=== PATIENT | male | born 2000 | race American Indian/Alaskan Native ===

== ENCOUNTER → 2022-01-19 13:26 | Outpatient (CLI) | payer OTHER, SELFPAY ==
--- NOTE | 2022-01-19 | DI.RAD.S_ITS ---
PROCEDURE: XR FEMUR LT MIN 2V INDICATIONS: Pain in left knee TECHNIQUE: To views of the femur were acquired. COMPARISON: [facility], CR, XR FEMUR 2+ VIEWS LEFT, 09/26/2017, 16:30. FINDINGS: Bones: Postsurgical changes compatible with ORIF of left femur fractures stable compared to September 26, 2017. Orthopedic hardware is in expected position. Orthopedic hardware is intact. No lucencies identified at the bone-hardware interface. No fractures or dislocations. No suspicious bony lesions. Soft tissues: No suspicious soft tissue calcifications or masses. IMPRESSION: Stable examination compared to September 26, 2017 with expected postsurgical change for left femur ORIF. Dictated by: Katia Ocampo MD, PhD on 01/19/2022 at 15:20 Approved by: Katia Ocampo MD, PhD on 01/19/2022 at 15:22
--- NOTE | 2022-01-19 | DI.RAD.S_ITS ---
PROCEDURE: XR KNEE LT 1TO2V INDICATIONS: Pain in left knee TECHNIQUE: To views of the knee were acquired. COMPARISON: [facility], CR, XR FEMUR 2+ VIEWS LEFT, 09/26/2017, 16:30. FINDINGS: Bones: Status post ORIF of left femur fracture which are stable compared to prior femur series obtained in 2017. Orthopedic hardware is in expected position. No acute fractures or dislocations. No suspicious bony lesions. Mild left knee tricompartmental osteoarthritis. Soft tissues: No joint effusion. No suspicious soft tissue calcifications. IMPRESSION: Mild tricompartmental left knee osteoarthritis. Stable postsurgical changes compatible with ORIF of left femur fracture. Dictated by: Katia Ocampo MD, PhD on 01/19/2022 at 15:24 Approved by: Katia Ocampo MD, PhD on 01/19/2022 at 15:25
== END ==
PROVIDERS: PCP Physician Assistant; Referring Provider Physician Assistant; Visit Provider Physician Assistant
DX: M25.562 Pain in left knee (principal); M17.12 Unilateral primary osteoarthritis, left knee
CPT/HCPCS: 73552; 73560

== ENCOUNTER 2024-05-20 13:38 | Observation (INO) | payer OTHER, SELFPAY ==
[2024-05-20 13:41] VITALS: BP 139/84; PULSE 87; RESP 18; TEMP 37; O2SAT 99; BMI 35.4
[2024-05-20 14:18] LABS: Add Manual Diff / Slide Review NO; Basophils Absolute Auto 100 /uL (0-100); Basophils Percent Auto 0.5 % (0-2); Eosinophils Absolute Auto 200 /uL (0-450); Hematocrit 45.4 % (41-53); Hemoglobin 15.1 g/dL (13.5-17.5); Lymphocytes Absolute Auto 1900 /uL (1100-4500); Lymphocytes Percent Auto 16.8 % (25-40); Mean Corpuscular HGB Conc 33.4 % (30-36); Mean Corpuscular Hemoglobin 27.6 PG (26-34); Mean Corpuscular Volume 82.7 fL (80-100); Monocytes Absolute Auto 700 /uL (0-900); Monocytes Percent Auto 6.2 % (3-14); Neutrophils Absolute Auto 8200 /uL (1500-7000); Neutrophils Percent Auto 74.5 % (50-75); Platelet Count 276 X10^3/uL (150-400); Red Blood Cell Count 5.48 X10^6/uL (4.5-5.9); Red Cell Distribution Width 14.7 % (11.6-14.8)
[2024-05-20 14:34] LABS: Alanine Aminotransferase 51 IU/L (<50); Albumin 4.4 g/dL (3.5-5.0); Albumin Globulin Ratio 1.5 (1.0-2.8); Alkaline Phosphatase 69 U/L (38-126); Aspartate Aminotransferase 37 IU/L (17-59); Blood Urea Nitrogen 5 mg/dL (9-20); Calcium 8.5 mg/dL (8.4-10.2); Carbon Dioxide 26 mmol/L (22-32); Chloride 108 mmol/L (98-107); Estimated Glomerular Filt Rate > 60 mL/min (>60); Globulin 2.9 g/dL (1.7-4.1); Glucose 110 mg/dL (70-100); HEMOLYSIS < 15 (0-50); Lipase 60 U/L (23-300); Potassium 3.7 mmol/L (3.4-5.1); Sodium 141 mmol/L (137-145); Total Protein 7.3 g/dL (6.3-8.2)
--- NOTE | 2024-05-20 16:29 | ED_ITS ---
HPI - Abdominal Pain <Tamica Herring PA-C - Last Filed: 05/20/24 17:50> General Chief Complaint: Abdominal Pain Stated Complaint: abd pain t-4 Time Seen by Provider: 05/20/24 15:35 Source: patient Mode of arrival: Ambulatory History of Present Illness HPI narrative: 23-year-old male past medical history nephrolithiasis presents to the ED with 4 days of right-sided abdominal pain. Patient states that at its worst the pain was a 6/10. Currently in the ED, patient states 3/10 pain. Patient localizes the pain to the right upper and lower quadrants. Patient denies fever, chills, nausea, vomiting, dysuria, lightheadedness, dizziness, syncope. Patient's last bowel movement was 2 days ago which is unusual for patient. No hematochezia, melena. Patient did have an episode of nephrolithiasis last year, he was able to pass the stones without any procedural intervention. Related Data Home Medications Medication Instructions Recorded Confirmed No Known Home Medications 05/20/24 05/20/24 Allergies Allergy/AdvReac Type Severity Reaction Status Date / Time Iodinated Contrast Media Allergy Verified 05/20/24 16:43 Vancomycin Allergy Unknown Uncoded 02/06/18 11:52 Review of Systems <Tamica Herring PA-C - Last Filed: 05/20/24 17:50> Constitutional Constitutional: Denies chills, Denies fatigue, Denies fever(s), Denies frequent falls, Denies lethargy and Denies weakness Eyes Eyes: Denies change in vision, Denies eye discharge, Denies irritation and Denies loss of vision ENT Ears, Nose, Mouth, and Throat: Denies change in voice, Denies dizziness, Denies neck pain, Denies sore throat and Denies throat swelling Cardiovascular Cardiovascular: Denies chest pain, Denies irregular heart rhythm, Denies lightheadedness, Denies palpitations, Denies dyspnea, Denies dyspnea on exertion and Denies orthopnea Respiratory Respiratory: Denies cough, Denies dyspnea, Denies dyspnea on exertion and Denies wheezing Gastrointestinal Gastrointestinal: Reports abdominal pain, Denies change in bowel habits, Denies diarrhea, Denies nausea and Denies vomiting Musculoskeletal Musculoskeletal: Denies neck pain and Denies numbness Integumentary/Breasts Skin/Breast: Denies pruritus, Denies erythema, Denies rash and Denies wounds Neurologic Neurologic: Denies behavioral changes, Denies confusion, Denies dizziness, Denies frequent falls, Denies loss of vision, Denies numbness and Denies weakness Psychiatric Psychiatric: Denies anxiety, Denies behavioral changes, Denies confusion, Denies depression, Denies homicidal ideation and Denies suicidal ideation Endocrine Endocrine: Denies fatigue, Denies flushing and Denies palpitations Hematologic/Lymphatic Hematologic/Lymphatic: Denies easy bruising Allergic/Immunologic Allergic/Immunologic: Denies urticaria, Denies throat swelling and Denies wheezing Patient History <Tamica Herring PA-C - Last Filed: 05/20/24 17:50> Social History household members: family Smoking Status: Current some day smoker alcohol intake: current Smoking Status: Current some day smoker tobacco type: vaping alcohol intake frequency: a few times a month Substance Use Type: does not use Exam <Tamica Herring PA-C - Last Filed: 05/20/24 17:50> Narrative Exam Narrative: Const General:?cooperative, healthy appearing and comfortable [facility] Head:?normal to inspection Ears:?hearing grossly normal bilaterally Nose:?external nose normal Face and sinus:?normal facial exam and sinuses nontender Mouth:?oral mucosae normal Throat:?posterior oropharynx normal Eyes General:?appearance normal, both eyes and all related structures Neck Neck:?normal visual inspection and no lymphadenopathy noted Resp Effort & Inspection:?normal respiratory effort Auscultation:?clear to auscultation bilaterally Cardio Rate:?regular rate Rhythm:?regular rhythm GI Abdomen is soft, nondistended. Abdomen is tender to palpation in the right upper and lower quadrants. Neuro General:?patient alert, patient awake and patient oriented x3 Initial Vital Signs Initial Vital Signs: Vital Signs Temperature 98.6 F 05/20/24 13:41 Pulse Rate 87 05/20/24 13:41 Respiratory Rate 18 05/20/24 13:41 Blood Pressure 139/84 05/20/24 13:41 Pulse Oximetry 99 05/20/24 13:41 Oxygen Delivery Method Room Air 05/20/24 13:41 <Misti Webber MD - Last Filed: 05/21/24 07:41> Initial Vital Signs Initial Vital Signs: Vital Signs Temperature 98.6 F 05/20/24 13:41 Pulse Rate 87 05/20/24 13:41 Respiratory Rate 18 05/20/24 13:41 Blood Pressure 139/84 05/20/24 13:41 Pulse Oximetry 99 05/20/24 13:41 Oxygen Delivery Method Room Air 05/20/24 13:41 Course <Tamica Herring PA-C - Last Filed: 05/20/24 17:50> Orders Ordered: Acetaminophen (Acetaminophen 325 Mg Tablet) 650 mg PO Q6H [facility] Last Admin: 05/21/24 02:02 Dose: 650 mg Documented By: Admin: 05/20/24 20:55 Dose: Not Given Documented By: HORACIO Hydrocodone Bitart/Acetaminophen (Hydrocodone/Acet 5/325 Tablet) 1 tab PO Q4H PRN PRN Reason: Pain, Moderate (4-6) Hydrocodone Bitart/Acetaminophen (Hydrocodone/Acet 5/325 Tablet) 2 tab PO Q4H PRN PRN Reason: Pain, Severe (7-10) Hydromorphone HCl (Hydromorphone 0.5 Mg Inj) 0.5 mg IV Q2H PRN PRN Reason: Pain, Severe (7-10) Last Admin: 05/20/24 20:08 Dose: 0.5 mg Documented By: HORACIO Sodium Chloride (Normal Saline 0.45%) 1,000 mls @ 100 mls/hr IV CONT [facility] Last Admin: 05/20/24 19:50 Dose: 100 mls/hr Documented By: HORACIO Piperacillin Sod/Tazobactam (Sod 3.375 gm/ Sodium Chloride) 100 mls @ 25 mls/hr IV Q8H [facility] Last Admin: 05/21/24 05:37 Dose: 25 mls/hr Documented By: Infusion: 05/21/24 02:10 Dose: Infused Documented By: Admin: 05/20/24 22:02 Dose: 25 mls/hr Documented By: HORACIO Ibuprofen (Ibuprofen 600 Mg Tablet) 600 mg PO Q6H PRN PRN Reason: Fever/Mild Pain (1-3) Naloxone HCl (Naloxone 0.4 Mg/Ml Vial) 0.2 mg IV Q2MIN PRN PRN Reason: Opiate Reversal Ondansetron HCl (Ondansetron 4 Mg/2 Ml Inj) 4 mg IV NOW PRN PRN Reason: Nausea And Vomiting Last Admin: 05/20/24 20:08 Dose: 4 mg Documented By: HORACIO Ondansetron HCl (Ondansetron 4 Mg Odt) 4 mg PO NOW PRN PRN Reason: Nausea And Vomiting Ondansetron HCl (Ondansetron 4 Mg/2 Ml Inj) 4 mg IV Q8HR PRN PRN Reason: Nausea And Vomiting Sodium Chloride (Sodium Chloride 0.9% Flush) 10 ml IV PRN PRN PRN Reason: Flush Discontinued Medications Diphenhydramine HCl (Diphenhydramine 50 Mg/Ml Vial) 25 mg IV NOW ONE Stop: 05/20/24 16:48 Last Admin: 05/20/24 17:38 Dose: Not Given Documented By: AJIT Piperacillin Sod/Tazobactam (Sod 4.5 gm/ Sodium Chloride) 100 mls @ 200 mls/hr IV NOW ONE Stop: 05/20/24 17:39 Last Infusion: 05/20/24 19:42 Dose: Infused Documented By: Infusion: 05/20/24 18:14 Dose: 200 mls/hr Documented By: Admin: 05/20/24 17:55 Dose: 200 mls/hr Documented By: SEMAJ Piperacillin Sod/Tazobactam (Sod 4.5 gm/ Sodium Chloride) 100 mls @ 200 mls/hr IV NOW ONE Stop: 05/20/24 19:02 Ibuprofen (Ibuprofen 600 Mg Tablet) 600 mg PO Q6H [facility] Methylprednisolone (Methylprednisolone 125 Mg/2 Ml Vial) 125 mg IV NOW ONE Stop: 05/20/24 16:41 Last Admin: 05/20/24 17:37 Dose: Not Given Documented By: AJIT Vital Signs Vital signs: Vital Signs - 8 hr 05/20/24 13:41 Temperature 98.6 F Pulse Rate 87 Respiratory Rate 18 Blood Pressure 139/84 Pulse Oximetry 99 Oxygen Delivery Method Room Air <Misti Webber MD - Last Filed: 05/21/24 07:41> Orders Ordered: Acetaminophen (Acetaminophen 325 Mg Tablet) 650 mg PO Q6H [facility] Last Admin: 05/21/24 02:02 Dose: 650 mg Documented By: Admin: 05/20/24 20:55 Dose: Not Given Documented By: HORACIO Hydrocodone Bitart/Acetaminophen (Hydrocodone/Acet 5/325 Tablet) 1 tab PO Q4H PRN PRN Reason: Pain, Moderate (4-6) Hydrocodone Bitart/Acetaminophen (Hydrocodone/Acet 5/325 Tablet) 2 tab PO Q4H PRN PRN Reason: Pain, Severe (7-10) Hydromorphone HCl (Hydromorphone 0.5 Mg Inj) 0.5 mg IV Q2H PRN PRN Reason: Pain, Severe (7-10) Last Admin: 05/20/24 20:08 Dose: 0.5 mg Documented By: HORACIO Sodium Chloride (Normal Saline 0.45%) 1,000 mls @ 100 mls/hr IV CONT [facility] Last Admin: 05/20/24 19:50 Dose: 100 mls/hr Documented By: HORACIO Piperacillin Sod/Tazobactam (Sod 3.375 gm/ Sodium Chloride) 100 mls @ 25 mls/hr IV Q8H [facility] Last Admin: 05/21/24 05:37 Dose: 25 mls/hr Documented By: Infusion: 05/21/24 02:10 Dose: Infused Documented By: Admin: 05/20/24 22:02 Dose: 25 mls/hr Documented By: HORACIO Ibuprofen (Ibuprofen 600 Mg Tablet) 600 mg PO Q6H PRN PRN Reason: Fever/Mild Pain (1-3) Naloxone HCl (Naloxone 0.4 Mg/Ml Vial) 0.2 mg IV Q2MIN PRN PRN Reason: Opiate Reversal Ondansetron HCl (Ondansetron 4 Mg/2 Ml Inj) 4 mg IV NOW PRN PRN Reason: Nausea And Vomiting Last Admin: 05/20/24 20:08 Dose: 4 mg Documented By: HORACIO Ondansetron HCl (Ondansetron 4 Mg Odt) 4 mg PO NOW PRN PRN Reason: Nausea And Vomiting Ondansetron HCl (Ondansetron 4 Mg/2 Ml Inj) 4 mg IV Q8HR PRN PRN Reason: Nausea And Vomiting Sodium Chloride (Sodium Chloride 0.9% Flush) 10 ml IV PRN PRN PRN Reason: Flush Discontinued Medications Diphenhydramine HCl (Diphenhydramine 50 Mg/Ml Vial) 25 mg IV NOW ONE Stop: 05/20/24 16:48 Last Admin: 05/20/24 17:38 Dose: Not Given Documented By: AJIT Piperacillin Sod/Tazobactam (Sod 4.5 gm/ Sodium Chloride) 100 mls @ 200 mls/hr IV NOW ONE Stop: 05/20/24 17:39 Last Infusion: 05/20/24 19:42 Dose: Infused Documented By: Infusion: 05/20/24 18:14 Dose: 200 mls/hr Documented By: Admin: 05/20/24 17:55 Dose: 200 mls/hr Documented By: SEMAJ Piperacillin Sod/Tazobactam (Sod 4.5 gm/ Sodium Chloride) 100 mls @ 200 mls/hr IV NOW ONE Stop: 05/20/24 19:02 Ibuprofen (Ibuprofen 600 Mg Tablet) 600 mg PO Q6H [facility] Methylprednisolone (Methylprednisolone 125 Mg/2 Ml Vial) 125 mg IV NOW ONE Stop: 05/20/24 16:41 Last Admin: 05/20/24 17:37 Dose: Not Given Documented By: AJIT Vital Signs Vital signs: Vital Signs - 8 hr 05/20/24 13:41 Temperature 98.6 F Pulse Rate 87 Respiratory Rate 18 Blood Pressure 139/84 Pulse Oximetry 99 Oxygen Delivery Method Room Air MDM - Abdominal Pain <Pricilaa LADARIUS Herring - Last Filed: 05/20/24 17:50> Lab Data 05/21/24 06:03 05/20/24 14:04 Labs: Lab Results 05/20/24 Range/Units 14:04 WBC 11.0 (4.5-11.0) X10^3/uL RBC 5.48 (4.5-5.9) X10^6/uL Hgb 15.1 (13.5-17.5) g/dL Hct 45.4 (41-53) % MCV 82.7 (80-100) fL MCH 27.6 (26-34) PG MCHC 33.4 (30-36) % RDW 14.7 (11.6-14.8) % Plt Count 276 (150-400) X10^3/uL Neut % (Auto) 74.5 (50-75) % Lymph % (Auto) 16.8 L (25-40) % [place] % (Auto) 6.2 (3-14) % Eos % (Auto) 2.0 (2-4) % Baso % (Auto) 0.5 (0-2) % Neut # (Auto) 8200 H (4398-5961) /uL Lymph # (Auto) 1900 (7906-6742) /uL [place] # (Auto) 700 (0-900) /uL Eos # (Auto) 200 (0-450) /uL Baso # (Auto) 100 (0-100) /uL Sodium 141 (137-145) mmol/L Potassium 3.7 (3.4-5.1) mmol/L Chloride 108 H (98-107) mmol/L Carbon Dioxide 26 (22-32) mmol/L BUN 5 L (9-20) mg/dL Creatinine 1.00 (0.66-1.25) mg/dL Estimated GFR > 60 (>60) mL/min BUN/Creatinine Ratio 5.0 L (6-22) Glucose 110 H (70-100) mg/dL Calcium 8.5 (8.4-10.2) mg/dL Total Bilirubin 1.0 (0.2-1.3) mg/dL AST 37 (17-59) IU/L ALT 51 H (<50) IU/L Alkaline Phosphatase 69 (38-126) U/L Total Protein 7.3 (6.3-8.2) g/dL Albumin 4.4 (3.5-5.0) g/dL Globulin 2.9 (1.7-4.1) g/dL Albumin/Globulin Ratio 1.5 (1.0-2.8) Lipase 60 (23-300) U/L Point of care testing: Urine Dip Bedside Urine Glucose Negative Bedside Urine Bilirubin - Negative Bedside Urine Ketone - Negative Urine Specific [place] 1.015 Bedside Urine Occult Blood - Negative Bedside Urine pH 7.0 Bedside Urine Protein - Negative Bedside Urine Urobilinogen - Negative Bedside Urine Nitrite - Negative Bedside Urine Leukocytes - Negative Esterase MDM Narrative Medical decision making narrative: 23-year-old male past medical history nephrolithiasis presents to the ED with 4 days of right-sided abdominal pain. Concern for appendicitis versus biliary etiology versus constipation versus other intra-abdominal pathology versus other. Will obtain labs, lipase, CT abdomen pelvis. Will consider ultrasound. Patient declines any pain medication at this time. Will reassess. Patient states that he had a bad allergic reaction to IV contrast as a child. Patient was given Solu-Medrol. Patient declined the Benadryl since he has no one to drive him home. He opted for the CT scan without contrast. Labs are within normal limits. UA without UTI. CT scan shows uncomplicated acute appendicitis. The appendix is distended and inflamed. No perforation or abscess. Dr. Pacheco from surgery was consulted, he recommends admitting to surgery. Patient allowed to eat with NPO starting at midnight. Dr. Pacheco request starting Zosyn. Zosyn ordered. Discussed findings and plan with patient. He is agreeable. Patient is admitted to surgery. <Misti Webber MD - Last Filed: 05/21/24 07:41> Lab Data Labs: Lab Results 05/20/24 Range/Units 14:04 WBC 11.0 (4.5-11.0) X10^3/uL RBC 5.48 (4.5-5.9) X10^6/uL Hgb 15.1 (13.5-17.5) g/dL Hct 45.4 (41-53) % MCV 82.7 (80-100) fL MCH 27.6 (26-34) PG MCHC 33.4 (30-36) % RDW 14.7 (11.6-14.8) % Plt Count 276 (150-400) X10^3/uL Neut % (Auto) 74.5 (50-75) % Lymph % (Auto) 16.8 L (25-40) % [place] % (Auto) 6.2 (3-14) % Eos % (Auto) 2.0 (2-4) % Baso % (Auto) 0.5 (0-2) % Neut # (Auto) 8200 H (4298-5879) /uL Lymph # (Auto) 1900 (4076-9044) /uL [place] # (Auto) 700 (0-900) /uL Eos # (Auto) 200 (0-450) /uL Baso # (Auto) 100 (0-100) /uL Sodium 141 (137-145) mmol/L Potassium 3.7 (3.4-5.1) mmol/L Chloride 108 H (98-107) mmol/L Carbon Dioxide 26 (22-32) mmol/L BUN 5 L (9-20) mg/dL Creatinine 1.00 (0.66-1.25) mg/dL Estimated GFR > 60 (>60) mL/min BUN/Creatinine Ratio 5.0 L (6-22) Glucose 110 H (70-100) mg/dL Calcium 8.5 (8.4-10.2) mg/dL Total Bilirubin 1.0 (0.2-1.3) mg/dL AST 37 (17-59) IU/L ALT 51 H (<50) IU/L Alkaline Phosphatase 69 (38-126) U/L Total Protein 7.3 (6.3-8.2) g/dL Albumin 4.4 (3.5-5.0) g/dL Globulin 2.9 (1.7-4.1) g/dL Albumin/Globulin Ratio 1.5 (1.0-2.8) Lipase 60 (23-300) U/L Point of care testing: Urine Dip Bedside Urine Glucose Negative Bedside Urine Bilirubin - Negative Bedside Urine Ketone - Negative Urine Specific [place] 1.015 Bedside Urine Occult Blood - Negative Bedside Urine pH 7.0 Bedside Urine Protein - Negative Bedside Urine Urobilinogen - Negative Bedside Urine Nitrite - Negative Bedside Urine Leukocytes - Negative Esterase Discharge Plan Departure Patient Disposition: Admitted to Surgery Clinical Impression: Acute appendicitis Qualifiers: Acute appendicitis type: unspecified acute appendicitis type Qualified Code(s): K35.80 - Unspecified acute appendicitis Admit Date/Time: 05/20/24 17:40 Admit Provider: Roscoe Pacheco ED Sign-out <Misti Webber MD - Last Filed: 05/21/24 07:41> Cosign ED Attending Cosignature Attestation: I did not see this patient. I was available all times for consultation.
--- NOTE | 2024-05-20 17:00 | DI.CT.S_ITS ---
PROCEDURE: CT ABDOMEN PELVIS WO CON INDICATIONS: R sided abd pain TECHNIQUE: Axial sections were acquired from the lung bases to the pubic symphysis. Coronal and sagittal reformats were performed. For radiation dose reduction, the following was used: automated exposure control, adjustment of mA and/or kV according to patient size. COMPARISON: None. FINDINGS: Image quality: Diagnostic. Lower Chest: No significant findings. URINARY: Right Kidney: No stones or hydronephrosis. Right Ureter: No hydroureter. Left Kidney: No stones or hydronephrosis. Left Ureter: No hydroureter. Bladder: Normal wall thickness. No stones. ABDOMEN: Liver: No contour-deforming solid mass. Gallbladder: No radiopaque gallstones or wall thickening. Biliary ducts: No biliary dilation. Pancreas: No ductal dilation. Spleen: Size is within normal limits. Adrenal Glands: No adrenal nodules. Stomach and Bowel: Normal colonic caliber, without significant wall thickening. The appendix is distended, and inflamed (series 2, image 54). Peritoneum: No abnormal intraperitoneal fluid. No free air. Ventral Wall: No hernia. Abdominal Nodes: No enlarged retroperitoneal or mesenteric lymph nodes. Vessels: Aorta and inferior vena cava are normal in size. PELVIS: Pelvic Organs: Unremarkable. Pelvic Nodes: Unremarkable. Miscellaneous: No inguinal hernias are seen. Bones: Surgical pinning of the left femoral neck. IMPRESSION: Uncomplicated acute appendicitis. No perforation or abscess. Dictated by: Wayne Tariq M.D. on 05/20/2024 at 17:21 Approved by: Wayne Tariq M.D. on 05/20/2024 at 17:22
[2024-05-20] MEDS: PIPERACILLIN/TAZO 4.5 GM in SODIUM CHLORIDE 0.9% 100 ML IV (17:55)
[2024-05-20 18:06] VITALS: BP 129/86; PULSE 76; RESP 12; O2SAT 100
[2024-05-20 18:51] VITALS: BP 144/90; PULSE 75; RESP 18; TEMP 36.7; O2SAT 100
[2024-05-20 19:30] VITALS: BMI 35.4
[2024-05-20] MEDS: SODIUM CHLORIDE 0.45% 1,000 ML 100 ML IV (19:50)
[2024-05-20 20:00] VITALS: BP 120/72; PULSE 66; RESP 16; TEMP 36.2; O2SAT 99
[2024-05-20] MEDS: HYDROMORPHONE 0.5 MG INJ IV (20:08)
[2024-05-20] MEDS: ONDANSETRON 4 MG/2 ML INJ IV (20:08)
[2024-05-20 20:15] LABS: MRSA (Nasal) PCR NOT DETECTED (Not Detect)
[2024-05-20] MEDS: PIPERACILLIN/TAZO 3.375 GM in SODIUM CHLORIDE 0.9% 100 ML IV (22:02)
[2024-05-21] VITALS (18 sets, daily range): BP systolic 111–148; BP diastolic 62–94; PULSE 67–94; RESP 13–21; TEMP 36.1–36.8; O2SAT 92–100; BMI 35.4
--- NOTE | 2024-05-21 | PATH_ITS ---
[facility] Accession Number: [id number] No. of containers..01 Tissue . 01 Material submitted: . appendix - APPENDIX . 01 Diagnosis: APPENDIX, APPENDECTOMY: Acute suppurative appendicitis and associated acute serositis. Negative for malignancy. [facility] 05/23/2024 1343 Local . 01 Electronically signed: . Kamaljit Jones MD, Pathologist NPI- [id number] . 01 Gross description: . The specimen is received in formalin labeled with two patient identifiers and appendix, and consists of a 6.5 x 0.8 x 0.8 cm vermiform appendix with an attached 4.2 x 1.5 x 1.0 cm mesoappendix. The serosal surface has diffuse hemorrhagic adhesions and fibrinopurulent exudate. The resection margin is stapled and is inked blue. The appendiceal wall is white, fibrotic, uniformly thick averaging 0.2 cm. The lumen is stellate at 0.3 cm. There is a 0.8 x 0.8 x 0.5 cm area of fat necrosis in the mesoappendix directly adjacent to the appendiceal wall; however, no direct communication is appreciated. Apprentice Painter Hand sections are submitted as follows: A1: Appendiceal resection margin and appendix with adjacent area of fat necrosis. A2: Tip of appendix, bisected. ([id number]) /[facility] 05/22/2024 0922 Local . 01 Pathologist provided ICD-10: K35.80 . 01 CPT . 304075 Specimen Comment: A courtesy copy of this report has been sent to [phone] Performed at: [address] [facility], [place], [place] [id number] MD Cassius Adams MD Phone: [phone]
[2024-05-21] MEDS: ACETAMINOPHEN 325 MG TABLET 650 MG PO ×2 (02:02→08:44)
[2024-05-21] MEDS: PIPERACILLIN/TAZO 3.375 GM in SODIUM CHLORIDE 0.9% 100 ML IV (05:37)
[2024-05-21 06:13] LABS: Add Manual Diff / Slide Review NO; Basophils Absolute Auto 100 /uL (0-100); Basophils Percent Auto 0.5 % (0-2); Eosinophils Absolute Auto 300 /uL (0-450); Eosinophils Percent Auto 2.5 % (2-4); Hematocrit 42.4 % (41-53); Hemoglobin 14.2 g/dL (13.5-17.5); Lymphocytes Absolute Auto 2400 /uL (1100-4500); Lymphocytes Percent Auto 21.5 % (25-40); Mean Corpuscular HGB Conc 33.4 % (30-36); Mean Corpuscular Hemoglobin 27.6 PG (26-34); Mean Corpuscular Volume 82.7 fL (80-100); Monocytes Absolute Auto 900 /uL (0-900); Monocytes Percent Auto 7.6 % (3-14); Neutrophils Absolute Auto 7700 /uL (1500-7000); Neutrophils Percent Auto 67.9 % (50-75); Platelet Count 237 X10^3/uL (150-400); Red Blood Cell Count 5.13 X10^6/uL (4.5-5.9); Red Cell Distribution Width 15.1 % (11.6-14.8); White Blood Cell Count 11.3 X10^3/uL (4.5-11.0)
--- NOTE | 2024-05-21 13:34 | P.HP_ITS ---
History of Present Illness History of Present Illness Date Patient Seen: 05/21/24 Time Patient Seen: 13:34 Chief complaint: abd pain t-4 Narrative: 23-year-old male H obesity, active tobacco use admitted for acute appendicitis. Developed vague abdominal pain 4 days ago yesterday became more localized periumbilical. Presented to [facility] for evaluation which was notable for WBC 11 CT abdomen pelvis demonstrates acute appendicitis uncomplicated. No prior abdominal surgeries. He has had a number of orthopedic procedures on his left lower extremity which he tolerated without issue. Feels nauseous without emesis abdominal pain has improved since his admission. [facility] Social History household members: family Smoking Status: Current some day smoker alcohol intake: current Meds Home Medications and Allergies Home Medications Medication Instructions Recorded Confirmed Type No Known Home Medications 05/20/24 05/20/24 History Allergies Allergy/AdvReac Type Severity Reaction Status Date / Time Iodinated Contrast Media Allergy Verified 05/20/24 16:43 Vancomycin Allergy Unknown Uncoded 02/06/18 11:52 Exam Vital Signs (past 8 hours): - 05/21/24 07:00 05/21/24 08:00 05/21/24 12:00 Temperature 97.8 F 97.2 F L Pulse Rate 82 70 Respiratory Rate 16 16 Blood Pressure 122/79 122/80 Pulse Oximetry 98 92 Oxygen Delivery Method Room Air Oxygen Delivery Method Room Air Oxygen Flow Rate 0 Narrative Exam Narrative: General adult man alert oriented no acute distress Chest nonlabored respiration Abdomen tender right lower quadrant no peritonitis Extremities warm well perfused Objective Labs 05/21/24 06:03 05/20/24 14:04 Labs: Laboratory Results - last 24 hr 05/20/24 05/20/24 05/21/24 14:04 18:55 06:03 WBC 11.0 11.3 H RBC 5.48 5.13 Hgb 15.1 14.2 Hct 45.4 42.4 MCV 82.7 82.7 MCH 27.6 27.6 MCHC 33.4 33.4 RDW 14.7 15.1 H Plt Count 276 237 Neut % (Auto) 74.5 67.9 Lymph % (Auto) 16.8 L 21.5 L [place] % (Auto) 6.2 7.6 Eos % (Auto) 2.0 2.5 Baso % (Auto) 0.5 0.5 Neut # (Auto) 8200 H 7700 H Lymph # (Auto) 1900 2400 [place] # (Auto) 700 900 Eos # (Auto) 200 300 Baso # (Auto) 100 100 Sodium 141 Potassium 3.7 Chloride 108 H Carbon Dioxide 26 BUN 5 L Creatinine 1.00 Estimated GFR > 60 BUN/Creatinine Ratio 5.0 L Glucose 110 H Calcium 8.5 Total Bilirubin 1.0 AST 37 ALT 51 H Alkaline Phosphatase 69 Total Protein 7.3 Albumin 4.4 Globulin 2.9 Albumin/Globulin Ratio 1.5 Lipase 60 Nasal Screen MRSA (PCR) Not detected Assessment & Plan Assessment and plan (1) Acute appendicitis: Qualifiers: Acute appendicitis type: unspecified acute appendicitis type Qualified Code(s): K35.80 - Unspecified acute appendicitis Status: Acute Assessment & Plan narrative: 23-year-old male [facility] obesity and active tobacco use admitted with acute uncomplicated appendicitis. Discussed management including medical and surgical intervention. Following discussion preference is to proceed with appendectomy. Overview of the operation described. Operative risks including hemorrhage, infection, staple line leak, damage to surrounding structures were reviewed. He provides his verbal consent to proceed. Time-Based Coding :: [TOTAL MINUTES] spent with patient and on the chart (including review of chart, obtaining history, exam, reviewing outside data, placing orders, documenting exam and treatment plan, and counseling patient) on [DATE]. Quality VTE Deep Vein Thrombosis/Pulmonary Embolism Present on Admission: No
[2024-05-21] MEDS: LACTATED RINGERS 1,000 ML 42 ML IV ×2 (14:30→15:54)
--- NOTE | 2024-05-21 14:40 | SUR.OPER ---
Supine on padded OR bed, head on pillow, right arm secured on padded arm board at <90 degrees abduction, left arm padded and tucked. legs uncrossed, safety belt at thigh, tape over blanket over lower legs.
[2024-05-21] MEDS: BUPIVACAINE 0.25% (PF) VIAL 30 ML INJ (15:14)
[2024-05-21] MEDS: ONDANSETRON 4 MG/2 ML INJ IV (15:59)
[2024-05-21] MEDS: METOCLOPRAMIDE 10 MG/2 ML INJ IV (16:00)
[2024-05-21] MEDS: OXYCODONE IR 5 MG TABLET PO (16:05)
--- NOTE | 2024-05-21 16:05 | P.OP_ITS ---
Operative Date/Time/Diagnoses Date of procedure: 05/21/24 Time of procedure: 16:05 Pre-op diagnosis: Acute appendicitis Post-op diagnosis: same Procedure & Clinicians Procedure: Laparoscopic appendectomy Same procedure as scheduled: Yes Indications: 23-year-old male with symptoms and radiographic findings consistent with acute uncomplicated appendicitis Surgeon: Peter Mcconnell Termination Clerk: Vinny Pérez Anesthesia Type: General Operative Notes Findings: Acute non perforated appendicitis Specimen(s): other (Appendix) Estimated Blood Loss (mL): 50 Procedure in detail: Patient was brought to the operating room placed supine on the table. Bilateral lower extremity compression devices were applied. Anesthesia was induced and they intubated with an endotracheal tube. They received 3.375 g of Zosyn prior to skin incision. The left arm was tucked and appropriately padded. They were prepped and draped in sterile fashion. Time-out was performed. An infraumbilical incision was made the umbilical stalk was grasped and elevated and incision was made and the abdomen was entered atraumatically. A 12 mm balloon trocar was then placed through the incision and pneumoperitoneum of 14 mm Hg was established. The scope was then inserted and the abdomen inspected, there was no evidence of injury upon entry. Two 5 mm ports were placed under direct visualization, one in the left lower quadrant and second in the lower midline. A thorough laparoscopic evaluation was performed inspecting all four quadrants. The patient was then tilted right side up. The small bowel was then swept to the upper aspect of the abdomen. The tenie were followed to the base of the cecum where the appendix was identified. The appendix was was mobilized from its lateral attachments. It was acutely inflamed but not perforated. The appendix was grasped and a window within the mesentery was made at the base of the appendix using the [place] dissector with care to avoid injuring the cecum. The mesoappendix was then divided using the endo-stapler with a staple length of 2.5 mm-white load. The mesenteric staple line was inspected for hemostasis. The appendix was then amputated flush at the cecum using the endo-stapler blue load. The specimen was retrieved using a endoscopic retrieval bag through the 10 mm infra-umbilical port. The right paracolic gutter and the pouch of Harvey were irrigated The 5 mm ports were then removed under direct visualization. The umbilical fascial incision was closed with 0 Vicryl in a figure-eight fashion. The skin wounds were irrigated and closed with 4-0 Monocryl followed by the application of Dermabond. Sponge instrument count at the end of the operation w as correct. The patient tolerated procedure well was extubated and transferred to the postoperative care unit in stable condition. Complications: none Post-operative Condition: stable Disposition: Acute Care
--- NOTE | 2024-05-21 16:20 | SUR.PHASEI ---
Report called to Sirena in ICU.
--- NOTE | 2024-05-21 16:32 | PC.NURSE ---
Postop Pt to room 228 from PACU at this time. Drowsy but awakens easily to voice. SpO2 94% on RA, HR in the 70s, BP stable. Reports pain to abd, medicated per emar. Skin glue to lap sites x3, C/D/I. Ice pack in place. Call light within reach.
--- NOTE | 2024-05-21 16:34 | SUR.PHASEI ---
Patient transferred via hospital bed from PACU to ICU.
[2024-05-21] MEDS: HYDROCODONE/ACET 5/325 TABLET 1 TAB PO (16:42)
== END 2024-05-21 18:46 | disposition home or self-care (01) ==
LOC: ED 17:38 → ICU 05-21 06:28 → AC 05-21 11:44
PROVIDERS: Emergency Medicine; Surgery; Admitting Provider Surgery; Emergency Provider Student in an Organized Health Care Education/Training Program; PCP Physician Assistant; Referring Provider Student in an Organized Health Care Education/Training Program; Visit Provider Surgery
PROC: 0DTJ4ZZ Resection of Appendix, Percutaneous Endoscopic Approach (ICD-10-PCS; CPT 44970; principal; 2024-05-21 16:30)
DX: K35.80 Unspecified acute appendicitis (principal); F17.210 Nicotine dependence, cigarettes, uncomplicated; E66.9 Obesity, unspecified
CPT/HCPCS: 44970; 36415; 74176; 80053; 81003; 83690; 85025; 87797; 96365; 96366; 96375; 96376; 99221; 99283; 99284; G0378; J0330; J1100; J1170; J1885; J2405; J2543; J2704; J2765; J3010; J7050

== ENCOUNTER 2024-11-08 01:39 | Emergency (ER) | payer OTHER, SELFPAY ==
[2024-11-08 01:44] VITALS: BP 138/96; PULSE 98; RESP 18; TEMP 37.2; O2SAT 95; BMI 38.0
--- NOTE | 2024-11-08 01:44 | DI.RAD.S_ITS ---
PROCEDURE: XR CHEST 1V INDICATIONS: eval for PNA TECHNIQUE: One view of the chest was acquired. COMPARISON: None. FINDINGS: Surgical changes and devices: None. Lungs and pleura: Lungs are clear. No pleural effusions or pneumothorax. Mediastinum: Mediastinal contours appear normal. Heart size is normal. Bones and chest wall: No suspicious bony lesions. Overlying soft tissues appear unremarkable. IMPRESSION: No acute cardiopulmonary pathology. Dictated by: Rigoberto Gillespie M.D. on 11/08/2024 at 1:54 Approved by: Rigoberto Gillespie M.D. on 11/08/2024 at 1:55
--- NOTE | 2024-11-08 02:03 | ED.GENADULT ---
HPI - General Adult General Chief complaint: Upper Respiratory Symptoms Stated complaint: Cough, fever x 2 days Time Seen by Provider: 11/08/24 01:44 Source: patient Mode of arrival: Ambulatory History of Present Illness HPI narrative: 24-year-old male here for evaluation of 2 days of cough, fever, body aches. He has been taking Tylenol and Mucinex. No other known sick contacts. No problems breathing. No skin rashes. Related Data Home Medications Medication Instructions Recorded Confirmed No Known Home Medications 06/05/24 06/05/24 Allergies Allergy/AdvReac Type Severity Reaction Status Date / Time Iodinated Contrast Media Allergy Verified 06/05/24 10:44 Vancomycin Allergy Unknown Uncoded 06/05/24 10:44 Review of Systems Review of Systems ROS Unobtainable: All systems reviewed & are unremarkable except as noted in HPI and below Patient History Social History household members: family Smoking Status: Current some day smoker alcohol intake: current Smoking Status: Current some day smoker tobacco type: vaping alcohol intake frequency: a few times a month Exam Initial Vital Signs Initial Vital Signs: Vital Signs Temperature 98.9 F 11/08/24 01:44 Pulse Rate 98 H 11/08/24 01:44 Respiratory Rate 18 11/08/24 01:44 Blood Pressure 138/96 H 11/08/24 01:44 Pulse Oximetry 95 11/08/24 01:44 Oxygen Delivery Method Room Air 11/08/24 01:44 Const General: cooperative, comfortable and No ill appearing HENMT Head: normal to inspection and normocephalic Resp Effort & Inspection: normal respiratory effort Auscultation: clear to auscultation bilaterally Cardio Rate: regular rate Rhythm: regular rhythm Neuro General: patient alert, patient awake and moves all extremities Extrem General: normal to inspection Course Orders Ordered: ED Orders 11/08/24 01:44 XR chest 1V Stat 11/08/24 01:50 Covid-19 + FLU A/B + RSV - PCR Stat Vital Signs Vital signs: Vital Signs - 8 hr 11/08/24 01:44 Temperature 98.9 F Pulse Rate 98 H Respiratory Rate 18 Blood Pressure 138/96 H Pulse Oximetry 95 Oxygen Delivery Method Room Air Medical Decision Making Lab Data Labs: Lab Results 11/08/24 Range/Units 01:50 SARS-CoV-2 (PCR) Negative (Negative) Influenza A (RT-PCR) Flu a positive H (NEGATIVE) Influenza B (RT-PCR) Flu b negative (NEGATIVE) RSV (PCR) Negative (Negative) Imaging Data Chest x-ray: Radiologist's Impression: PROCEDURE: XR CHEST 1V INDICATIONS: eval for PNA TECHNIQUE: One view of the chest was acquired. COMPARISON: None. FINDINGS: Surgical changes and devices: None. Lungs and pleura: Lungs are clear. No pleural effusions or pneumothorax. Mediastinum: Mediastinal contours appear normal. Heart size is normal. Bones and chest wall: No suspicious bony lesions. Overlying soft tissues appear unremarkable. IMPRESSION: No acute cardiopulmonary pathology. MDM Narrative Medical decision making narrative: Chest x-ray shows no signs of pneumonia. Patient was influenza positive which does correspond to his presenting symptoms today. Has had symptoms for greater than 48 hours. No indication for antibiotics. Patient was nontoxic. He was informed with the diagnosis. He was informed of the expected course over the next couple days. He was given return precautions. He expressed understanding and agreement. Discharge Plan Departure Patient Disposition: Home Clinical Impression: Influenza Instructions: DI for Influenza -- Adult Activity Restrictions/Additional Instructions: You are positive for influenza A. You can take Tylenol and/or ibuprofen for any fevers or body aches. Be sure that you were staying hydrated. Your symptoms could potentially last anywhere from 7-10 days. Contact your primary doctor for follow-up. Return to the emergency department for new symptoms. Prescriptions: No Action No Known Home Medications Referrals: Eleuterio Hsieh PA-C [Primary Care Provider] - Stand Alone Forms: Patient Portal/API/Survey, Work Release Note
[2024-11-08 02:31] LABS: Influenza A - CEPHEID Flu A POSITIVE (NEGATIVE); Influenza B - CEPHEID Flu B NEGATIVE (NEGATIVE); Respiratory Syncytial Virus Negative (Negative)
[2024-11-08 02:33] LABS: COVID-19 CEPHEID 4-PLEX PCR Negative (Negative)
== END 2024-11-08 02:41 | disposition home or self-care (01) ==
PROVIDERS: Emergency Provider Emergency Medicine; PCP Physician Assistant
DX: J10.1 Influenza due to other identified influenza virus with other respiratory manifestations (principal); R50.9 Fever, unspecified
CPT/HCPCS: 0241U; 71045; 99283